=== PATIENT | male | born 1950 ===

== ENCOUNTER 2022-04-08 09:53 | Emergency (ER) | payer MEDICARE | END 2022-04-08 18:05 | disposition left against medical advice (07) | LOC: ED 09:53 | DX: M54.2 Cervicalgia (principal); Z53.21 Procedure and treatment not carried out due to patient leaving prior to being seen by health care provider; W19.XXXA Unspecified fall, initial encounter; Y93.89 Activity, other specified; Y92.89 Other specified places as the place of occurrence of the external cause; Y99.8 Other external cause status ==